=== PATIENT | female | born 1965 | race Asian ===

== ENCOUNTER 2018-07-24 06:55 | Day surgery (SDC) | payer OTHER ==
[~2018-07-24] VITALS: Ht 167.6 cm; Wt 81.6 kg
[2018-07-24] MEDS ORDERED: CEFAZOLIN SOD 1 GM/ ISO 50 ML PREMIX IV ONE (07:00)
[2018-07-24] MEDS ORDERED: fentaNYL CITRATE 250 MCG/5 ML AMP IV ONE (09:50)
[2018-07-24] MEDS ORDERED: PROPOFOL 200MG/ 20ML VIAL (DIPRIVAN) IV ONE (09:50)
[2018-07-24] MEDS ORDERED: NS IRRIG SOLN 1000 ML IR ONE (09:50)
[2018-07-24] MEDS ORDERED: ONDANSETRON HCL 4 MG/2 ML VIAL IVP ONE (09:50)
[2018-07-24] MEDS ORDERED: BUPIVACAINE /PF 0.25% 30 ML VIAL INJ ONE (09:50)
[2018-07-24] MEDS ORDERED: LR 1,000 ML IV.SOLN IV ONE (09:50)
[2018-07-24] MEDS ORDERED: MIDAZOLAM HCL 5 MG/5 ML VIAL IVP ONE (09:50)
[2018-07-24] MEDS ORDERED: ISOSULFAN BLUE 5 ML VIAL (LYMPHAZURIN) INJ ONE (09:50)
[2018-07-24] MEDS ORDERED: SEVOFLURANE 15 MIN GAS INH ONE (09:50)
[2018-07-24] MEDS ORDERED: ROCURONIUM BROMIDE 10 MG/ML (ZEMURON) IV ONE (09:50)
[2018-07-24] MEDS ORDERED: LR 1,000 ML IV SCH (11:34)
[2018-07-24] MEDS ORDERED: METOCLOPRAMIDE HCL 10 MG/2 ML VIAL IVP PRN (11:45)
[2018-07-24] MEDS ORDERED: MORPHINE 4 MG/ML INJ. SYRINGE IVP PRN ×2 (11:45)
[2018-07-24] MEDS ORDERED: D5/0.45 NS 1,000 ML IV SCH (11:50)
[2018-07-24] MEDS ORDERED: HYDROmorphone 1 MG INJ. 1 MG/ML AMPUL IVP PRN (12:00)
[2018-07-24] MEDS ORDERED: HYDROcodone/ACETAMIN 5-325 MG TAB (NORCO/ VICODIN) PO PRN ×2 (12:00)
[2018-07-24] MEDS: MORPHINE 4 MG/ML INJ. SYRINGE IVP PRN ×2 (12:19→12:35)
[2018-07-24] MEDS ORDERED: MORPHINE 4 MG/ML INJ. SYRINGE ONE (12:26)
[2018-07-24] MEDS ORDERED: HYDROcodone/ACETAMIN 5-325 MG TAB (NORCO/ VICODIN) ONE (13:17)
[2018-07-24 13:37] VITALS: BP_SYST 125
[2018-07-24] MEDS ORDERED: METOCLOPRAMIDE HCL 10 MG/2 ML VIAL ONE (14:40)
== END 2018-07-24 15:40 | disposition home or self-care (01) ==
LOC: SDS 06:55 → SMU 06:55 → SDS 15:40
PROVIDERS: ATTEND Colon & Rectal Surgery
DX: C50.212 Malignant neoplasm of upper-inner quadrant of left female breast (principal); C77.3 Secondary and unspecified malignant neoplasm of axilla and upper limb lymph nodes; E78.5 Hyperlipidemia, unspecified; E03.9 Hypothyroidism, unspecified; J20.9 Acute bronchitis, unspecified; F17.200 Nicotine dependence, unspecified, uncomplicated; E55.9 Vitamin D deficiency, unspecified; E66.3 Overweight; Z68.29 Body mass index [BMI] 29.0-29.9, adult; Z98.51 Tubal ligation status; Z86.718 Personal history of other venous thrombosis and embolism; Z80.6 Family history of leukemia
CPT/HCPCS: 19301; 38525; 38900; 78195; 88305; 88307; 88333; A9541; J0690; J2250; J2270; J2405; J2704; J2765; J3010; J3490; J7120; Q9968; 19081

== ENCOUNTER 2018-11-27 09:26 | Day surgery (SDC) | payer OTHER ==
[~2018-11-27] VITALS: Ht 165.1 cm; Wt 84.8 kg
[~2018-11-27 09:26] MED LIST: CEFAZOLIN SOD 1 GM in D5W 50 ML IV ONE
[2018-11-27] MEDS ORDERED: BUPIVACAINE /PF 0.25% 30 ML VIAL INJ ONE (11:40)
[2018-11-27] MEDS ORDERED: ONDANSETRON HCL 4 MG/2 ML VIAL IVP ONE (11:40)
[2018-11-27] MEDS ORDERED: HEPARIN SODIUM, PORCINE 10,000 UNITS/ 10 ML VIAL MC ONE (11:40)
[2018-11-27] MEDS ORDERED: NORMAL SALINE 10 ML VIAL IVP ONE (11:40)
[2018-11-27] MEDS ORDERED: LR 1,000 ML IV.SOLN IV ONE (11:40)
[2018-11-27] MEDS ORDERED: MIDAZOLAM HCL 5 MG/5 ML VIAL IVP ONE (11:40)
[2018-11-27] MEDS ORDERED: fentaNYL CITRATE/PF 100 MCG/2 ML AMP IVP ONE (11:40)
[2018-11-27] MEDS ORDERED: NEOSTIGMINE METHYLSULFATE 1 MG/ML, 10 ML VIAL IVP ONE (11:40)
[2018-11-27] MEDS ORDERED: SEVOFLURANE 15 MIN GAS INH ONE (11:40)
[2018-11-27] MEDS ORDERED: EPINEPHrine 1 MG/ML AMP IV ONE (11:40)
[2018-11-27] MEDS ORDERED: GLYCOPYRROLATE 0.2 MG/ML VIAL IJ ONE (11:40)
[2018-11-27] MEDS ORDERED: ROCURONIUM BROMIDE 10 MG/ML (ZEMURON) IV ONE (11:40)
[2018-11-27] MEDS ORDERED: NS 500 ML IV.SOLN IV ONE (11:40)
[2018-11-27] MEDS ORDERED: POLYMYXIN 500,000/BACIT.10,000 UNITS in NS IRR 1 L IR ONE (12:16)
[2018-11-27] MEDS ORDERED: LR 1,000 ML IV SCH (12:25)
[2018-11-27] MEDS ORDERED: METOCLOPRAMIDE HCL 10 MG/2 ML VIAL IVP PRN (12:30)
[2018-11-27] MEDS ORDERED: MORPHINE 4 MG/ML INJ. SYRINGE IVP PRN ×3 (12:30)
[2018-11-27] MEDS ORDERED: D5/0.45 NS 1,000 ML IV SCH (12:43)
[2018-11-27] MEDS ORDERED: HYDROmorphone 2 MG/ML VIAL IVP PRN (12:45)
[2018-11-27] MEDS ORDERED: HYDROcodone/ACETAMIN 5-325 MG TAB (NORCO/ VICODIN) PO PRN ×2 (12:45)
[2018-11-27 15:04] VITALS: BP_SYST 137
== END 2018-11-27 14:20 | disposition home or self-care (01) ==
LOC: SMU 09:26 → SDS 09:26
PROVIDERS: ATTEND Colon & Rectal Surgery
DX: Z45.2 Encounter for adjustment and management of vascular access device (principal); E66.9 Obesity, unspecified; C50.919 Malignant neoplasm of unspecified site of unspecified female breast; E78.5 Hyperlipidemia, unspecified; E03.9 Hypothyroidism, unspecified; F17.200 Nicotine dependence, unspecified, uncomplicated; E55.9 Vitamin D deficiency, unspecified; Z98.51 Tubal ligation status; Z79.899 Other long term (current) drug therapy
CPT/HCPCS: 36561; 71045; 77001; C1788; J0171; J0690; J1644; J2250; J2405; J2710; J3010; J3490 ×2; J7040; J7060; J7120